=== PATIENT | female | born 1945 | race Caucasian/White ===

== ENCOUNTER 2020-12-13 12:40 | Outpatient (CLI) | payer MEDICARE, BC, SELFPAY ==
--- NOTE | 2020-12-13 06:00 | DI.RAD_ITS ---
Exam(s) XR PAIN CLINIC LUMBAR SP 2V EXAM: XR PAIN CLINIC LUMBAR SP 2V CLINICAL HISTORY: Dx:Lumbar Spondylosis TECHNIQUE: 2D and realtime digital imaging was performed. Radiologist not present. CONTRAST MATERIAL: None. COMPARISON: No exams were available for comparison FINDINGS: Fluoroscopy was provided for pain management therapy performed on the lumbar spine. Please refer to p [email or web address] report or details. Cumulative dose: Ka,r=4.51 mGy IMPRESSION: RADIATION DOSE DELIVERED:
[2020-12-13 12:53] VITALS: BP 140/77; PULSE 69; RESP 16; TEMP 37; O2SAT 98
--- NOTE | 2020-12-13 13:31 | PDOC.PAIN_ITS ---
Pain Clinic Procedure Note Procedure Note Procedure Note: Lumbar/Sacral Medial Branch Blocks Date of service: December 13, 2020 LONNIE WATERS has been referred to the [facility] for lumbar/sacral medial branch blocks. COMMENTS: She was seen in our clinic by Ms. Schultz on 11/08/20. She has a L4- L5 spinous process fusion. Her pain is both above and below this level. It seemed that her pain was worse below this level and that is why I chose to complete this procedure at the bilateral L5-S1 level. Pre-procedure pain level was 10/10. DX: Lumbosacral spondylosis without myelopathy Patient was interviewed and the medical record reviewed. There were no medical, pharmacologic, radiographic or other structural contraindications to attempting fluoroscopically guided local anesthetic lumbar/sacral medial branch blocks. Risks and expected side effects as well as potential benefit of the procedure were reviewed and voiced concerns addressed. The printed consent form was signed and witnessed. Standard time-out procedure was performed. Patient was placed in the prone position on the fluoroscopy table and automated blood pressure cuff and pulse oximeter applied. The skin entry points for approaching the anatomic target points of the segmental medial branches of b ilateral L3-L5DR were identified with fluoroscopy and marked. Following thorough Chlorhexadine preparation of the skin and draping and 1% lidocaine infiltration of the skin entry points and subcutaneous tissues, a 25 gauge 3.5 spinal needle was placed under fluoroscopic guidance down on to the target point for each respective segmental medial branch.Position was confirmed in A/P, obliq ue and lateral views with 0.25ml of omnipaque 240. At this point 5ml 0.5% of Bupivacaine was injected at each segmental nerve. Vital signs were stable throughout the procedure and were as recorded in the docflowsheet by the nursing staff. Follow up plans and appointments were discussed and was instructed to keep careful note of how the usual pain was modified by these injections. Specifically was asked to keep a pain diary for the next 24 hours using a numeric pain scale of 0-10 and report these results at the follow-up visit. Post procedure instruction was given as documented in the nursing documentation and having met discharge criteria. Patient was discharged from the [facility]. Based on the medial branches blocked today, if the patient has adequate relief and we are able to proceed to radiofrequency ablation, the treatment should result in the denervation of the bilateral L5-S1 FACET JOINT. We would expect to denervate a total of 2 facets during the radiofrequency ablation. COMMENTS: She tolerated the procedure well. Post-procedure pain level directly after the procedure was 5/10. She will call back with her 1-4 hour post procedure pain scores. Jose Daniel Walker DO, MPH Pain Management CC: Darryn Rogel
[2020-12-13 13:50] VITALS: BP 132/58; PULSE 84; RESP 22; O2SAT 96
[2020-12-13] MEDS: Omnipaque 240 MG/ML 50 ML BTL IJ (13:51)
[2020-12-13] MEDS: Bupivacaine 0.5% Pres-Free 10 ML VIAL IJ (13:52)
== END 2020-12-13 12:41 | disposition home or self-care (01) ==
LOC: PC 12:41
PROVIDERS: PCP Internal Medicine; Visit Provider Preventive Medicine Occupational Medicine
DX: M47.817 Spondylosis without myelopathy or radiculopathy, lumbosacral region (principal)
CPT/HCPCS: 64493; 64494; 72100; Q9967

== ENCOUNTER 2021-01-22 12:31 | Outpatient (CLI) | payer MEDICARE, BC, SELFPAY ==
--- NOTE | 2021-01-22 06:00 | DI.RAD_ITS ---
Exam(s) XR PAIN CLINIC LUMBAR SP 2V EXAM: XR PAIN CLINIC LUMBAR SP 2V CLINICAL HISTORY: Dx: Lumbar Spondylosis TECHNIQUE: 2D and realtime digital imaging was performed. COMPARISON: No exams were available for comparison FINDINGS: C-arm fluoroscopy was utilized by Dr. Garduno during reported bilateral medial lumbar branch block. Hard copy shows needle placements bilaterally at what appear to be the L4-5 and L5-S1 levels. RADIATION DOSE DELIVERED: louise Ring= 14.9 mGy
[2021-01-22 13:24] VITALS: BP 159/74; PULSE 63; RESP 22; TEMP 36.6; O2SAT 99
--- NOTE | 2021-01-22 13:31 | PDOC.PAIN_ITS ---
Pain Clinic Procedure Note Procedure Note Procedure Note: Lumbar/Sacral Medial Branch Blocks Date of service: January 22, 2021 LONNIE WATERS has been referred to the [facility] for lumbar/sacral medial branch blocks. COMMENTS: patient responded well to previous procedure and returns for co nfirmatory lumbar medial branch nerve block. patient has previous history of compression fracture status post vertebroplasty as well as previous history of lumbar instrumented fusion. patient also had perforated bowel in december and is status post hip replacement after broken hip. She reports her back pain is10 out of 10 currently. DX: Lumbosacral spondylosis without myelopathy Patient was interviewed and the medical record reviewed. There were no medical, pharmacologic, radiographic or other structural contraindications to attempting fluoroscopically guided local anesthetic lumbar/sacral medial branch blocks. Risks and expected side effects as well as potential benefit of the procedure were reviewed and voiced concerns addressed. The printed consent form was signed and witnessed. Standard time-out procedure was performed. Patient was placed in the prone position on the fluoroscopy table and automated blood pressure cuff and pulse oximeter applied. The skin entry points for appr oaching the anatomic target points of the segmental medial branches of bilateral L4, -L5DR were identified with fluoroscopy and marked. Following thorough Chlorhexadine preparation of the skin and draping and 1% lidocaine infiltration of the skin entry points and subcutaneous tissues, a 25 gauge 3.5 spinal needle was placed under fluoroscopic guidance down on to the target point for each respective segmental medial branch.Position was confirmed in A/P, oblique and lateral views with 0.25ml of omnipaque 240. At this point 0.5ml 2% of Lidocaine was injected at each segmental nerve. Vital signs were stable throughout the procedure and were as recorded in the docflowsheet by the nursing staff. Follow up plans and appointments were discussed and was instructed to keep careful note of how the usual pain was modified by these injections. Specifically was asked to keep a pain diary for the next 24 hours using a numeric pain scale of 0-10 and report these results at the follow-up visit. Post procedure instruction was given as documented in the nursing documentation and having met discharge criteria. Patient was discharged from the [facility]. Based on the medial branches blocked today, if the patient has adequate relief and we are able to proceed to radiofrequency ablation, the treatment should result in the denervation of the bilateral L5-S1 FACET JOINT. We would expect to denervate a total of 2 facets during the radiofrequency ablation. COMMENTS: She tolerated the procedure well. Pre-procedure pain level is 10 out of 10, Post-procedure pain level directly after the procedure was 0/10. She will call back with her 1-4 hour post procedure pain scores. Romeo Garduno MD Pain Management CC: Darryn Rogel
[2021-01-22 14:22] VITALS: BP 144/82; PULSE 76; RESP 18; O2SAT 100
[2021-01-22] MEDS: Lidocaine 2% Pres-Free 5 ML VIAL IJ (17:01)
[2021-01-22] MEDS: Omnipaque 240 MG/ML 50 ML BTL IJ (17:01)
== END 2021-01-22 12:32 | disposition home or self-care (01) ==
PROVIDERS: PCP Internal Medicine; Visit Provider Internal Medicine
DX: M47.817 Spondylosis without myelopathy or radiculopathy, lumbosacral region (principal)
CPT/HCPCS: 64493; 64494; 72100; Q9967

== ENCOUNTER 2021-02-28 07:36 | Outpatient (CLI) | payer MEDICARE, BC, SELFPAY ==
--- NOTE | 2021-02-28 06:00 | DI.RAD_ITS ---
Exam(s) XR PAIN CLINIC LUMBAR SP 2V EXAM: XR PAIN CLINIC LUMBAR SP 2V CLINICAL HISTORY: Dx: Lumbar Spondylosis TECHNIQUE: 2D and realtime digital imaging was performed. Radiologist not present. CONTRAST MATERIAL: None. COMPARISON: No exams were available for comparison FINDINGS: Fluoroscopy was provided for lumbar level pain management therapy. Please refer to procedure report o r details. Radiofrequency ablation procedure Radiologist was not present Cumulative dose: Ka,r=7.11 mGy IMPRESSION: RADIATION DOSE DELIVERED:
[2021-02-28 07:51] VITALS: BP 152/82; PULSE 64; RESP 18; TEMP 36.8; O2SAT 100
[2021-02-28] MEDS: Lactated Ringers 1,000 ML 80 ML IV (08:37)
[2021-02-28] MEDS: Midazolam 2 MG/2 ML VIAL IVP (08:38)
[2021-02-28] MEDS: fentaNYL 100 MCG/2 ML VIAL IVP ×2 (08:38→08:50)
[2021-02-28 09:09] VITALS: BP 149/75; PULSE 75; RESP 19; O2SAT 96
--- NOTE | 2021-02-28 09:14 | PDOC.PAIN ---
Pain Clinic Procedure Note Procedure Note Procedure Note: Bilateral Lumbar Radiofrequency with Coolief Machine PROCEDURE NOTE Date of Service: February 28, 2021 Patient: LONNIE WATERS Provider: Jose Daniel Walker DO, MPH Pre Operative Diagnosis: Lumbosacral Spondylosis without Myelopathy Post Operative Diagnosis: Same Post procedure pain; VAS= 6/10 PROCEDURE: Radiofrequency Ablation of medial branches - Bilateral L4 L5 and lateral branches of bilateral S1. LONNIE WATERS was brought into the fluoroscopy suite and positioned into the prone position on the fluoroscopy table and allowed to adjust to a position of comfort. A grounding pad was placed on the left thigh. The lumbar region was widely prepped with a chloraprep solution, allowed to air dry and draped in standard sterile surgical fashion. Local anesthesia was provided by 6 mL of 2% Lidocaine delivered with a 25g needle. A 17g 75 mm radiofrequency introducer needle was placed to the planned anatomic targets guided with intermittent fluoroscopy with a perpendicular approach to terminally place at the junction of the superior articular process and the transverse process of the bilateral L4 L5, the base of the bilateral sacral ala for the L5 medial branch nerve and the area between base of the sacral ala to the S1 foramen bilaterally. The stylets were removed and radiofrequency probes with a 4mm active tip were then inserted. Needle tip position of the probes was verified in the AP, oblique, and lateral views. At each site, the medial branch nerve was stimulated at 2 Hz to a maximum 1-2 volts determined to finalize safe needle and electrode placement. The patient was awake and responsive during this portion of the procedure. Each target was anesthetized with 1-2 mL of 2% Lidocaine for anesthesia for lesioning and then each target was lesioned at 80 degrees Celsius for 2 minutes and 30 seconds. Tissue impedences were noted to be between 250 and 500 Ohms. Electrodes and needles were then removed and bandages placed over the needle placement sites, the patient then returned to the supine position on a stretcher and transported to the recovery room without hemodynamic, neurologic, or allergic reactions. Fluoroscopic images were printed for hard copy recording and digitally archived. POST PROCEDURE EVALUATION: IMPRESSION: 1. Summary of procedure. Medication given is documented in the MAR. 2. The patient will be contacted in 1-3 weeks 3. Estimated Blood Loss: <5 mls 4. Fluoroscopy time: Documented in the EMR. Follow up plans and appointments were discussed with the LONNIE . Post procedure instruction was given as documented in nursing documentation and having met discharge criteria, LONNIE was discharged from the [facility]. COMMENTS: No apparent complications. Post-procedure pain: VAS= 0/10. F/U with our office as needed. I personally performed this entire procedure. Jose Daniel Walker DO, MPH Attending Physician Pain Management
[2021-02-28] MEDS: Lidocaine 2% Pres-Free 5 ML VIAL IJ (09:38)
[2021-02-28] MEDS: Bupivacaine 0.5% Pres-Free 10 ML VIAL IJ (09:39)
[2021-02-28] MEDS: methylPREDNISolone ACETATE 40 MG/ML VIAL IJ (09:39)
== END 2021-02-28 07:37 | disposition home or self-care (01) ==
PROVIDERS: PCP Internal Medicine; Visit Provider Preventive Medicine Occupational Medicine
DX: M47.817 Spondylosis without myelopathy or radiculopathy, lumbosacral region (principal)
CPT/HCPCS: 64635; 64636; 72100; J1030; J2250; J3010

== ENCOUNTER 2021-06-27 11:22 | Outpatient (CLI) | payer MEDICARE, BC, SELFPAY ==
--- NOTE | 2021-06-27 06:00 | DI.RAD_ITS ---
Exam(s) XR PAIN CLINIC LUMBAR SP 2V EXAM: XR PAIN CLINIC LUMBAR SP 2V CLINICAL HISTORY: DX: lumbar spondylosis TECHNIQUE: 2D and realtime digital imaging was performed. Radiologist not present. CONTRAST MATERIAL: None. COMPARISON: No exams were available for comparison FINDINGS: Fluoroscopy was provided for pain management therapy. Please refer to procedure report or details. Cumulative dose: Ka,r=11.45 mGy IMPRESSION: RADIATION DOSE DELIVERED:
[2021-06-27 11:45] VITALS: BP 131/73; PULSE 69; RESP 20; TEMP 36.7; O2SAT 96
[2021-06-27] MEDS: Bupivacaine 0.5% Pres-Free 10 ML VIAL IJ (12:36)
[2021-06-27] MEDS: Omnipaque 240 MG/ML 50 ML BTL IJ (12:36)
[2021-06-27 12:37] VITALS: BP 138/70; PULSE 76; RESP 22; O2SAT 96
--- NOTE | 2021-06-27 13:41 | PDOC.PAIN ---
Pain Clinic Procedure Note Procedure Note Procedure Note: Lumbar/Sacral Medial Branch Blocks OLNNIE WATERS has been referred to the [facility] for lumbar/sacral medial branch blocks. COMMENTS: Pain VAS was 8/10 pre-procedure DX: Lumbosacral spondylosis without myelopathy Patient was interviewed and the medical record reviewed. There were no medical, pharmacologic, radiographic or other structural contraindications to attempting fluoroscopically guided local anesthetic lumbar/sacral medial branch blocks. Risks and expected side effects as well as potential benefit of the procedure were reviewed and voiced concerns addressed. The printed consent form was signed and witnessed. Standard time-out procedure was performed. Patient was placed in the prone position on the fluoroscopy table and automated blood pressure cuff and pulse oximeter applied. The skin entry points for approaching the anatomic target points of the segmental medial branches of bilateral L1-L3 were identified with fluoroscopy and marked. Following thorough Chlorhexadine preparation of the skin and draping and 1% lidocaine infiltration of the skin entry points and subcutaneous tissues, a 25 gauge spinal 3.5 needle was placed under fluoroscopic guidance down on to the target point for each respective segmental medial branch.Position was confirmed in A/P, oblique and lateral views with 0.25ml of omnipaque 240. At this point 0.5ml 0.5% Bupivacaine was injected at each segmental nerve. Vital signs were stable throughout the procedure and were as recorded in the docflowsheet by the nursing staff. Follow up plans and appointments were discussed and was instructed to keep careful note of how the usual pain was modified by these injections. Specifically was asked to keep a pain diary for the next 24 hours using a numeric pain scale of 0-10 and report these results at the follow-up visit. Post procedure instruction was given as documented in the nursing documentation and having met discharge criteria. Patient was discharged from the [facility]. Based on the medial branches blocked today, if the patient has adequate relief and we are able to proceed to radiofrequency ablation, the treatment should result in the denervation of the bilateral L2-L3 and L3-L4 FACET JOINTS. We would expect to denervate a total of 4 facets during the radiofrequency ablation. COMMENTS: Post-procedure pain VAS was 0/10. Jose Daniel Walker DO, MPH [facility] - Pain Management CC: Darryn Rogel
== END 2021-06-27 11:23 | disposition home or self-care (01) ==
LOC: PC 11:22
PROVIDERS: PCP Internal Medicine; Visit Provider Preventive Medicine Occupational Medicine
DX: M47.817 Spondylosis without myelopathy or radiculopathy, lumbosacral region (principal)
CPT/HCPCS: 64493; 64494; 72100; Q9967

== ENCOUNTER 2021-08-29 09:03 | Outpatient (CLI) | payer MEDICARE, SELFPAY ==
--- NOTE | 2021-08-29 06:00 | DI.RAD_ITS ---
Exam(s) XR PAIN CLINIC LUMBAR SP 2V EXAM: XR PAIN CLINIC LUMBAR SP 2V CLINICAL HISTORY: Dx: Lumbar Spondylosis TECHNIQUE: 2D and realtime digital imaging was performed. COMPARISON: CR XR LS SPINE 2-3 VIEWS from 11/28/2020 FINDINGS: C-arm fluoroscopy was utilized by Dr. Walker during multilevel bilateral medial branch block. Hard cop examiner y show needle placement bilaterally at what appear to be the T12-L1, L1-2, and L2-3 levels bilaterall y. IMPRESSION: RADIATION DOSE DELIVERED: louise Ring= 7.39 mGy
[2021-08-29 09:15] VITALS: BP 147/86; PULSE 69; RESP 18; TEMP 36.8; O2SAT 96
--- NOTE | 2021-08-29 09:53 | PDOC.PAIN_ITS ---
Pain Clinic Procedure Note Procedure Note Procedure Note: Lumbar/Sacral Medial Branch Blocks bilateral L1- L3 #2 Margarita Dueñas has been referred to the [facility] Center for lumbar/sacral medial branch blocks. COMMENTS: She did very well with the first LMBB at bilateral L1-L3 DX: Lumbosacral spondylosis without myelopathy. Pre-procedure pain VAS = 8/10 Patient was interviewed and the medical record reviewed. There were no medical, pharmacologic, radiographic or other structural contraindications to attempting fluoroscopically guided local anesthetic lumbar/sacral medial branch blocks. Risks and expected side effects as well as potential benefit of the procedure were reviewed and voiced concerns addressed. The printed consent form was signed and witnessed. Standard time-out procedure was performed. Patient was placed in the prone position on the fluoroscopy table and automated blood pressure cuff and pulse oximeter applied. The skin entry points for approaching the anatomic target points of the segmental medial branches of bilateral L1-L3 were identified with anfluoroscopy and marked. Following thorough Chlorhexadine preparation of the skin and draping and 1% lidocaine infiltration of the skin entry points and subcutaneous tissues, a 22 gauge sp inal needle was placed under fluoroscopic guidance down on to the target point for each respective segmental medial branch.Position was confirmed in A/P, oblique and lateral views with 0.25ml of omnipaque 240. At this time, I injected 0.5ml 2% Lidocaine was injected at each sensory nerve. Vital signs were stable throughout the procedure and were as recorded in the docflowsheet by the nursing staff. Follow up plans and appointments were discussed and was instructed to keep careful note of how the usual pain was modified by these injections. Specifically was asked to keep a pain diary for the next 24 hours using a numeric pain scale of 0-10 and report these results at the follow-up visit. Post procedure instruction was given as documented in the nursing documentation and having met discharge criteria. Patient was discharged from the [facility]. Based on the medial branches blocked today, if the patient has adequate relief and we are able to proceed to radiofrequency ablation, the treatment should result in the denervation of the bilateral L2-L3 and L3-L4 FACET JOINTS. We would expect to denervate a total of 4 facets during the radiofrequency ablation. COMMENTS: She will call back and let us know her 1-4 hour post-procedure pain levels. Post-procedure pain VAS = 0/10 Jose Daniel Walker DO, MPH [facility]Pain [facility] CC: Darryn Rogel
[2021-08-29] MEDS: Omnipaque 240 MG/ML 50 ML BTL IJ (10:01)
[2021-08-29 10:02] VITALS: BP 136/74; PULSE 74; RESP 20; O2SAT 97
[2021-08-29] MEDS: Lidocaine 2% Pres-Free 5 ML VIAL IJ (10:02)
== END 2021-08-29 09:04 | disposition home or self-care (01) ==
PROVIDERS: PCP Internal Medicine; Visit Provider Preventive Medicine Occupational Medicine
DX: M47.817 Spondylosis without myelopathy or radiculopathy, lumbosacral region (principal)
CPT/HCPCS: 64493; 64494; 72100; Q9967

== ENCOUNTER 2021-12-05 11:47 | Outpatient (CLI) | payer BC, SELFPAY ==
[2021-12-05 12:04] VITALS: BP 136/76; PULSE 70; RESP 18; TEMP 36.9; O2SAT 97
[2021-12-05] MEDS: Midazolam 2 MG/2 ML VIAL IVP (12:34)
[2021-12-05] MEDS: fentaNYL 100 MCG/2 ML VIAL IVP ×2 (12:34→12:40)
[2021-12-05 13:10] VITALS: BP 134/85; PULSE 71; RESP 19; O2SAT 93
--- NOTE | 2021-12-05 13:11 | DI.RAD_ITS ---
Exam(s) XR PAIN CLINIC LUMBAR SP 2V EXAM: XR PAIN CLINIC LUMBAR SP 2V CLINICAL HISTORY: Dx: Lumbar Spondylosis TECHNIQUE: 2D and realtime digital imaging was performed. COMPARISON: No exams were available for comparison FINDINGS: C-arm fluoroscopy was utilized by Dr. Walker during reported radiofrequency ablation. Hard copy shows needle placement of at what appear to be the L1, L2, and L3 levels on the left and the L1-L2 and L3 l evels on the right. IMPRESSION: RADIATION DOSE DELIVERED: louise Ring=13.1 mGy
[2021-12-05] MEDS: methylPREDNISolone ACETATE 40 MG/ML VIAL IJ (13:20)
--- NOTE | 2021-12-05 13:20 | PDOC.PAIN_ITS ---
Pain Clinic Procedure Note Procedure Note Procedure Note: Bilateral Lumbar Radiofrequency with Coolief Machine - L1-L3 PROCEDURE NOTE Date of Service: December 05, 2021 Patient: Margarita Dueñas Provider: Jsoe Daniel Walker DO, MPH Pre Operative Diagnosis: Lumbosacral Spondylosis without Myelopathy Post Operative Diagnosis: Same Pre procedure pain; VAS= 7/10 PROCEDURE: Radiofrequency Ablation of medial branches - Bilateral L1 L2 L3. Margarita Dueñas was brought into the fluoroscopy suite and positioned into the prone position on the fluoroscopy table and allowed to adjust to a position of comfort. A grounding pad was placed on the [right/left] thigh. The lumbar region was widely prepped with a chloraprep solution, allowed to air dry and draped in standard sterile surgical fashion. Local anesthesia was provided by 4 mL of 2% Lidocaine delivered with a 25g needle. A 17g 75 mm radiofrequency introducer needle was placed to the planned anatomic targets guided with intermittent fluoroscopy with a perpendicular approach to terminally place at the junction of the superior articular process and the transverse process of the bilateral L2 L3 and L4. The stylets were removed and radiofrequency probes with a 4mm active tip were then inserted. Needle tip position of the probes was verified in the AP, oblique, and lateral views. At each site, the medial branch nerve was stimulated at 2 Hz to a maximum 1-2 volts determined to finalize safe needle and electrode placement. The patient was awake and responsive during this portion of the procedure. Each target was anesthetized with 1-2 mL of 2 % Lidocaine for anesthesia for lesioning and then each target was lesioned at 80 degrees Celsius for 2 minutes and 30 seconds. Tissue impedences were noted to be between 250 and 500 Ohms. Electrodes and needles were then removed and bandages placed over the needle placement sites, the patient then returned to the supine position on a stretcher and transported to the recovery room without hemodynamic, neurologic, or allergic reactions. Fluoroscopic images were printed for hard copy recording and digitally archived. POST PROCEDURE EVALUATION: IMPRESSION: 1. Summary of procedure. Medication given is documented in the MAR. 2. The patient will be contacted in 1-3 weeks 3. Estimated Blood Loss: <5 mls 4. Fluoroscopy time: Documented in the EMR. Follow up plans and appointments were discussed with the Margarita . Post procedure instruction was given as documented in nursing documentation and yamini owen met discharge criteria, Margarita was discharged from the [facility] Management [facility]. COMMENTS: No apparent complications. Post-procedure pain: VAS= 0/10. F/U with our office as needed. I personally performed this entire procedure. Jose Daniel Walker DO, MPH Attending Physician Pain Management
[2021-12-05] MEDS: Lidocaine 2% Pres-Free 5 ML VIAL IJ (13:21)
[2021-12-05] MEDS: Bupivacaine 0.5% Pres-Free 10 ML VIAL IJ (13:23)
== END 2021-12-05 11:48 | disposition home or self-care (01) ==
PROVIDERS: PCP Internal Medicine; Visit Provider Preventive Medicine Occupational Medicine
DX: M47.817 Spondylosis without myelopathy or radiculopathy, lumbosacral region (principal)
CPT/HCPCS: 64635; 64636; 72100; J1030; J2250; J3010